=== PATIENT | female | born 1975 | race Caucasian/White ===

== ENCOUNTER 2018-12-28 21:38 | Emergency (ER) | payer MEDICAID ==
[~2018-12-28 21:38] MED LIST: IBUP-1984 PO; LORA1TAB PO
== END 2018-12-28 22:58 | disposition left against medical advice (07) ==
LOC: ER 21:39
DX: T78.40XA Allergy, unspecified, initial encounter (principal); Z53.21 Procedure and treatment not carried out due to patient leaving prior to being seen by health care provider; X58.XXXA Exposure to other specified factors, initial encounter

== ENCOUNTER 2025-07-17 14:22 | Emergency (ER) | payer MEDICAID ==
[~2025-07-17] VITALS: Ht 175.3 cm; Wt 97.7 kg
--- NOTE | 2025-07-17 14:25 | Physician Documentation ---
History of Present Illness General Stated Complaint: POSS FENTANYL INTAKE Time Seen by MD: 14:25 OK to notify your PCP?: Yes Primary Medical Doctor: Alberto Barrientos Source: patient Mode of Arrival: POV Exam Limitations: no limitations HEART Score: 0 History of Present Illness Initial Comments 49-year-old female who is here due to not feeling normal after going through some of her sister's belongings and coming in contact with some white powder" 30minutes prior to arrival. She is concerned about consumption of fentanyl as she states when she came in contact with the white powder she put it up to her mouth and was smelling it and she states somehow she got some of it into her mouth. Sister's belongings she was going through recently from fentanyl overdose. She reports she feels very drowsy. She reports that she feels intoxicated. No nausea, vomiting, chest pain, unilateral numbness or weakn ess, changes in speech. Medication Reconciliation Allergies: Coded Allergies: hydrocodone bit (Verified Allergy, Severe, SWELLING, 07/17/25) codeine (Verified Allergy, Intermediate, 07/17/25) aspirin (Verified Adverse Reaction, Unknown, BLEEDING, 07/17/25) Scheduled Ibuprofen* (Motrin*), 400 MG PO QID Lorazepam* (Ativan*), 1 MG PO BID, (Reported) Past Medical History Past Medical History: Seizures Past Surgical History: no surgical history Smoking: Cigarettes Alcohol Use: None Drug Use: none Review of Systems All Other Systems at this time: Reviewed and Negative Physical Exam Physical Exam Physical Exam GENERAL: Alert, no acute distress, BUT DIFFICULTY KEEPING EYES OPEN, APPEARS V THEO DROWSY IN TRIAGE. HEENT: NCAT, EOMI, PERRL, normal oropharynx, moist oral mucosa. NECK: Supple, trachea midline. CARDIAC: Regular rate and rhythm, no murmurs, rubs, or gallops. Equal distal pulses. No lower extremity edema, cap refill less than 2 seconds. RESPIRATORY: Equal breath sounds, clear to auscultation bilaterally, no respiratory distress. GASTROINTESTINAL: Non distended, soft, nontender, No guarding or rebound. MUSCULOSKELETAL: Normal range of motion, nontender, no swelling. Normal gait. NEUROLOGICAL: Awake, alert, and oriented x 3. cn 2-12 intact. SKIN: Warm/dry, no pallor, no rash. PSYCH: Alert and appropriate. Affect congruent with mood. Speech is clear. Good eye contact. Progress Results/Orders Results/Orders Orders - ALEXANDRU GAINES Cbc/Diff (07/17/25 14:32) BMP (07/17/25 14:32) Completed Orders - ALEXANDRU GAINES Drug Screen, Urine (07/17/25 14:32) Vital Signs 07/17/25 07/17/25 07/17/25 07/17/25 14:26 14:51 14:55 15:31 Temp 97.7 Pulse 101 84 84 Resp 24 16 16 16 B/P (MAP) 143/98 134/99 (111) 138/89 (105) Pulse Ox 97 97 97 O2 Flow Rate 0 0 0 Laboratory Tests Test 07/17/25 14:55 07/17/25 16:03 Urine Opiates Screen Negative Urine Methadone Screen Negative Urine Fentanyl Screen Positive H Urine Barbiturates Screen Negative Urine Phencyclidine Screen Negative Urine Amphetamines Screen Positive Urine Benzodiazepines Screen Negative Urine Cocaine Screen Negative Urine Cannabinoids Screen Negative Drug Screen Comment CBC Comment Chemistry Comments Medical Decision Making Additional information obtaine: N/A Findings N/A Differential Diagnosis ACCIDENTAL INGESTION OF ILLICIT DRUGS, STROKE, METABOLIC ABNORMALITY, RESPIRATORY DEPRESSION PATIENT DOES APPEAR DROWSY ON EXAM BUT HER VITALS ARE NORMAL SHE HAS NO RESPIRATORY DEPRESSION. HER CRANIAL NERVES STATED IN EXAM ARE INTACT Departure Time of Disposition: 15:40 Disposition: 01 HOME / SELF CARE / HOMELESS Impression: Primary Impression: Accidental drug ingestion Qualified Codes: T50.901A - Poisoning by unspecified drugs, medicaments and biological substances, accidental (unintentional), initial encounter Additional Impressions: Accidental fentanyl poisoning Qualified Codes: T40.411A - Poisoning by fentanyl or fentanyl analogs, accidental (unintentional), initial encounter Unintentional methamphetamine poisoning Qualified Codes: T43.651A - Poisoning by methamphetamines accidental (unintentional), initial encounter Condition: Stable Discharge Instructions: General Discharge Instructions Additional Instructions: Poison control recommended that we monitor you for 6 hours which would be until 20:26 tonight due tox screen being positive consistent with ingestion of fentanyl and methamphetamines. Referrals: NO PRIMARY CARE PROVIDER (PCP) Education Educated: Patient Educated regarding: diagnosis, treatment, need for follow up Signature Scribe Signature: x Attestation: ALEXANDRU Castillo Jul 17, 2025 14:25
[2025-07-17 15:44] LABS: URINE AMPHETAMINE SCREEN POSITIVE (Neg); URINE BARBITUATE SCREEN NEGATIVE (Neg); URINE BENZODIAZEPINES SCREEN NEGATIVE (Neg); URINE CANNABINOID SCREEN NEGATIVE (Neg); URINE COCAINE SCREEN NEGATIVE (Neg); URINE METHADONE SCREEN NEGATIVE (Neg); URINE OPIATE SCREEN NEGATIVE (Neg); URINE PHENCYCLIDINE SCREEN NEGATIVE (Neg)
[2025-07-17 16:29] LABS: MEAN PLATELET VOLUME 8.4 FL (7.4-10.4); RED CELL DISTRIBUTION WIDTH 14.2 % (11.5-14.5)
[2025-07-17] MEDS ORDERED: hyDROXYzine 50 mg/ml injection ***IM only IM ONE (16:30)
[2025-07-17 16:36] LABS: CREATININE 0.76 MG/DL (0.40-0.90); TOTAL CARBON DIOXIDE 28.3 MMOL/L (24-32); eCRCL 94 ML/MIN; eGFR 81 ML/MIN
[2025-07-17 20:34] VITALS: BP 111/66; PULSE 89; RESP 16; TEMP 97.7; O2SAT 98
== END 2025-07-17 20:36 | disposition home or self-care (01) ==
LOC: ER 14:23
DX: T40.412A Poisoning by fentanyl or fentanyl analogs, intentional self-harm, initial encounter (principal); T43.652A Poisoning by methamphetamines intentional self-harm, initial encounter; F17.210 Nicotine dependence, cigarettes, uncomplicated; Z88.5 Allergy status to narcotic agent; Z88.6 Allergy status to analgesic agent; Z79.899 Other long term (current) drug therapy; Y92.89 Other specified places as the place of occurrence of the external cause
CPT/HCPCS: 36415; 80048; 80305; 85025; 99285; Q0177